=== PATIENT | male | born 1995 | race Caucasian/White ===

== ENCOUNTER 2024-09-30 19:54 | Emergency (ER) | payer OTHER, SELFPAY ==
[2024-09-30 19:56] VITALS: BP 153/95
[2024-09-30 20:15] LABS: Hematocrit 42.0 % (39.0-52.0); Hemoglobin 14.7 g/dL (13.0-18.0); Mean Corp Hgb Conc. 35.0 g/dL (33.0-37.0); Mean Corpuscular Volume 75.7 fL (80.0-94.0); Nucleated Red Blood Cells % 0 % (-); Platelet Count 397 10^3/uL (130-400); Red Cell Dist. Width 12.7 % (11.5-14.5)
[2024-09-30 20:30] LABS: ALT (SGPT) 30 U/L (0-50); AST (SGOT) 29 U/L (17-59); Albumin 5.1 g/dl (3.5-5.0); Alkaline Phosphatase 89 U/L (38-126); Blood Urea Nitrogen 17 mg/dl (9-20); Calcium 11.0 mg/dl (8.4-10.2); Carbon Dioxide 27 mmol/L (22-30); Chloride 104 mmol/L (98-107); Glucose 101 mg/dl (70-99); Lipase 49 U/L (23-300); Potassium 4.0 mmol/L (3.5-5.1); Sodium 140 mmol/L (135-145); Total Protein 8.2 g/dl (6.3-8.2); eGFR > 60.00
--- NOTE | 2024-10-01 00:40 | ED.GENMED ---
History of Present Illness
General
Chief Complaint: Abdominal Pain
Source: patient and family (mom at bedside)
Exam Limitations: none
Time Seen by Provider: 10/01/24 00:01
Nursing documentation reviewed up to this point in time: agreed with
History of Present Illness
History of Present Illness:
The patient is a 28 year-old male who presents with right mid abdominal pain. Patient states he initially noticed right lower back/flank pain about two weeks ago and was seen at his primary care provider where it was suspect that he had a oblique
strain and was advised to take NSAIDs and a muscle relaxer. He stated symptoms seemed only minimally improved, and now pain seems to be progressing into his right mid abdomen. There has been no clear, positional component to symptoms.
Patient denies any associated fever, chills, nausea/vomiting, dysuria/hematuria. No chest pain, shortness of breath, cough, or other viral symptoms.
Patient has no medical problems.
Past History
Past History
ED Past Medical History: None
ED Past Surgical History: Other (hernia, fx nose repair, wisdom teeth, pilonidal cyst.)
Social History
Tobacco: Non-smoker
Personal: Single
Living: with family
Employment: Employed (Finance)
Review of Systems
Review of Systems
Allergies reviewed?: Yes
All Other Systems: ROS reviewed and negative except as documented in HPI and ROS
Phy Exam
Physical Exam
Physical Exam:
Vitals: Hypertensive, otherwise vital signs stable. Afebrile.
General: Patient is well appearing, no acute distress. Nontoxic appearing
Skin: Warm and dry, no rashes or lesions
Head: Normocephalic, atraumatic
Eyes: Sclera nonicteric.
Throat: Protecting airway
Neck: Normal ROM, no cervical spine tenderness, no meningismus
Cardiac: Regular rate and rhythm, no murmurs.
Pulm: Normal respiratory effort, no wheezes, rales, rhonchi heard on exam
.
Abdomen: Abdomen soft. Very mild periumbilical tenderness. No rebound tenderness or guarding. No CVA tenderness.
Extremities: No evidence of cyanosis or edema
Neuro: AAOx3.Grossly intact.
Psychiatric: Normal affect.
Course
Orders/Labs/Results
Orders:
Orders
09/30/24 20:08
Complete Blood Count/With Diff Urgent
Comprehensive Metabolic Panel Urgent
Lipase Urgent
09/30/24 23:30
Urinalysis Reflex To Culture Urgent
Date Specimen was Collected: 09/30/24
Time Specimen was Collected: 20:00
10/01/24 00:08
CT Abd/pelvis W Iv Cont Urgent
Comment:
Reason For Exam: Right lower abdominal pain
0.9% Sodium Chloride 1000 ml [Nss] 1,000 ml IV BOLUS
Ketorolac [Toradol] 15 mg IV NOW STA
Abnormal Lab Results
09/30/24
20:08
WBC 15.5 H 10^3/uL
(4.8-10.8)
MCV 75.7 L fL
(80.0-94.0)
MCH 26.5 L pg
(27.0-31.0)
Abs Immat Gran (auto) 0.1 H 10^3/uL
(0-0.05)
Absolute Neuts (auto) 10.4 H 10^3/uL
(1.4-6.5)
Absolute Monos (auto) 1.5 H 10^3/uL
(0.1-0.6)
Immature Gran % 0.6 H %
(0-0.5)
Glucose 101 H mg/dl
(70-99)
Calcium 11.0 H mg/dl
(8.4-10.2)
Albumin 5.1 H g/dl
(3.5-5.0)
09/30/24 20:08
09/30/24 20:08
Vital Signs
Initial and Last Documented VS:
Initial Vital Signs
Temp Pulse Resp BP Pulse Ox
98.5 F 95 20 153/95 98
09/30/24 19:56 09/30/24 19:56 09/30/24 19:56 09/30/24 19:56 09/30/24 19:56
Last Documented Vital Signs
Temp Pulse Resp BP Pulse Ox
98.5 F 86 18 145/93 98
09/30/24 19:56 10/01/24 01:05 10/01/24 01:05 10/01/24 01:05 10/01/24 01:05
MDM/Problems Addressed
Differential Diagnosis Includes:
Not limited to: muscle strain, nephrolithiasis, pyelonephritis, appendicitis, abdominal hernia, constipation, etc
MDM/Problems Addressed:
28-year-old male with two weeks of right flank pain now progressing into right abdomen. No other associated infectious symptoms such as fever, vomiting, dysuria, etc. No hematuria. No known inciting injury or trauma. Patient has stable vital signs
on arrival. On exam � patient very well appearing, no apparent distress. Abdomen soft and nontender. No focal tenderness at McBurneys point. No reproducible flank tenderness. No rash or ecchymosis. Cardio/pulmonary assessment unremarkable.
Differential broad at this time although considerations include renal colic, pyelonephritis, appendicitis, constipation, etc.
ED plan: labs, urinalysis, CT scan with IV contrast abdomen/pelvis. Will give IV fluids, toradol and reassess.
Update: labs reviewed. Leukocytosis of 15.1. Chemistry without clinically significant abnormalities. Mild elevation in calcium. UA shows no evidence of infection or red blood cells. CT scan results revealed no acute intra-abdominal pathology.
Work up in ED negative. Unsure exactly etiology of patients presenting symptoms � however possible MSK in origin. He remains very well and comfortable appearing, ambulating around room without difficulty.
Elevated white blood cell count noted today however no clear indication of infectious process. Patient�s mom interestingly enough does say that she has chronic elevation of white blood cell counts. Advised close follow with primary care for repeat
labs to ensure blood counts normalize. Advised continued supportive care at home and close monitoring of symptoms. Very strict return precautions discussed. Patient and mom comfortable with plan.
Chronic conditions affecting care:
N/A
Acute Exacerbation and/or Progression of Chronic Illness:
N/A
*Radiology
Radiology exam reviewed: radiology read reviewed
*Pulse Oximetry
SaO2: 98
Oxygen Mode of Delivery: Room air
Patient hypoxic: no
*EKG
Interpreted by ED Provider?: NA
*Work Ticket Distributor Interpretation
Rate: Work Ticket Distributor- N/A
*Critical Care Note
Total Time (30-74mins, 75-104mins- exclusive of procedures): Not Applicable
ED Attending Note
-
Portions of this chart may have been created with voice recognition software.� Occasional wrong word or��sound alike� substitutions may have occurred due to the inherent limitations of voice recognition software.
Discharge Plan
Departure
Patient Disposition: Home (Routine Discharge)
Date of Disposition: 10/01/24
Time of Disposition: 03:06
Patient with high blood pressure during this ER visit?: Yes
Condition: Good
Covid-19: Not Applicable
Discharge Problem:
Abdominal pain, Flank pain
Instructions: Flank pain - ED discharge instructions, Abdominal Pain, BLOOD PRESSURE
Referrals:
Stormy Durbin CRNP [Family Provider, Family Practice] - Follow up in 5-7 days
Activity Restrictions/Additional Instructions:
RETURN TO THE EMERGENCY DEPARTMENT WITH ANY HIGH FEVERS, PERSISTENT/WORSENING ABDOMINAL OR FLANK PAIN, DIFFICULTIES URINATING, INTRACTABLE NAUSEA/VOMITING, PERSISTENT LACK OF APPETITE, NUMBNESS/TINGLING IN EXTREMITIES, SHORTNESS OF BREATH, WORSENING
IN CURRENT SYMPTOMS, OR ANY OTHER CONCERNS
-As discussed�your CT scan showed no acute abnormalities. Your urinalysis did not appear infected.
- Your white blood cell count was elevated in the emergency department. Please have this repeated with your primary care to ensure trending down. In addition�your calcium was mildly elevated.
- Continue to take NSAIDs as needed for discomfort.
- Follow-up with primary care for further evaluation/management to ensure their symptoms are improving
Monitor your symptoms closely and return to the emergency department with any acute worsening/new symptoms or any other concerns
Interventions
Interventions:
*Risk Screen - Suicide Last Done: 09/30/24 19:56
*General Assessment Last Done: 09/30/24 19:56
*Neglect/Abuse Screening Last Done: 09/30/24 19:56
*ED- Fall Risk Assessment Last Done: 10/01/24 01:03
*ED COVID-19 Vaccine History Last Done: 10/01/24 01:03
*Nursing Disposition Last Done: 10/01/24 03:19
[facility]-Deemfp-Mhaacyemmy Assessment Last Done: 10/01/24 01:11
Discharge Date and Time
Discharge Date/Time: 10/01/24 03:19
Print Language: SWEDISH
[2024-10-01 00:56] VITALS: BMI 35.4
[2024-10-01] MEDS: NSS 1000 IV (01:01)
[2024-10-01] MEDS: TORADOL 15 MG IV (01:01)
[2024-10-01 01:05] VITALS: BP 145/93
[2024-10-01 01:12] LABS: Urine Character Clear (Clear)
== END 2024-10-01 03:19 | disposition home or self-care (01) ==
LOC: EMR 19:54
PROVIDERS: Student in an Organized Health Care Education/Training Program; EMERGENCY PHYSICIAN Emergency Medicine; FAMILY PHYSICIAN Nurse Practitioner Family
DX: R10.31 Right lower quadrant pain (principal); M54.50 Low back pain, unspecified; D72.829 Elevated white blood cell count, unspecified
CPT/HCPCS: 96374; 96361; 99284; 74177; 80053; 81003; 83690; 85025; Q9967